=== PATIENT | male | born 1965 | race American Indian/Alaskan Native ===

== ENCOUNTER 2021-02-27 13:29 | Emergency (ER) | payer OTHER ==
--- NOTE | 2021-02-27 14:58 | Event Note ---
ED Screening Note Date of service: 02/27/21 Time: 14:58 ED Screening Note: Patient complains of chest pain, cough with brown sputum, and fatigue x5 days Denies shortness of breath States tactile fever at home This initial assessment/diagnostic orders/clinical plan/treatment(s) is/are subject to change based on patients health status, clinical progression and re- assessment by fellow clinical providers in the ED. Further treatment and workup at subsequent clinical providers discretion. Patient/guardian urged not to elope from the ED as their condition may be serious if not clinically assessed and managed. Initial orders include: Labs Chest x-ray EKG
[2021-02-27 15:42] LABS: Basophils # (Auto) 0.1 K/mm3 (0.0-0.1); Basophils % (Auto) 0.8 % (0.0-1.8); Eosinophils % (Auto) 0.1 % (0.0-4.3); Hematocrit 39.7 % (35.5-45.6); Lymphocytes # (Auto) 1.6 K/mm3 (1.2-5.4); Mean Corpuscular HGB Conc 33 % (32-34); Mean Corpuscular Volume 88 fl (84-94); Monocytes # (Auto) 0.6 K/mm3 (0.0-0.8); Monocytes % (Auto) 7.2 % (0.0-7.3); Platelet Count 240 K/mm3 (140-440); Red Blood Count 4.49 M/mm3 (3.65-5.03); Red Cell Distribution Width 14.8 % (13.2-15.2)
[2021-02-27 16:05] LABS: Alanine Aminotransferase 49 units/L (7-56); Albumin 3.7 g/dL (3.9-5); BUN/Creatinine Ratio 23; Blood Urea Nitrogen 23 mg/dL (9-20); Calcium 10.1 mg/dL (8.4-10.2); Hemolysis Index 13
--- NOTE | 2021-02-27 16:25 | XRay Report ---
XR chest routine 2V INDICATION / CLINICAL INFORMATION: chest pain, cough COMPARISON: None available. FINDINGS: SUPPORT DEVICES: None. HEART / MEDIASTINUM: No significant abnormality. LUNGS / PLEURA: Left lower lung zone parenchymal opacities. Right lower lung zone parenchymal opacity could be atelectasis and/or airspace disease as well. Costophrenic sulci are sharp. No pneumothorax. ADDITIONAL FINDINGS: No significant additional findings. IMPRESSION: 1. Left lower lung zone opacities concerning for pneumonia. Signer Name: Leonardo Hernandez MD Signed: 02/27/2021 4:20 PM Workstation Name: [id number]
--- NOTE | 2021-02-27 20:14 | Emergency Department Report ---
ED General Adult HPI - General Chief complaint: Chest Pain Stated complaint: FATIGUE,COUGH,HEADACHE Time Seen by Provider: 02/27/21 14:57 Source: patient Mode of arrival: Wheelchair Limitations: No Limitations - History of Present Illness Initial comments: 55-year-old -[place] male patient with history of hypertension diabetes presents with complaints of chest pain, cough with brown sputum, and fatigue x5 days. Patient denies any hemoptysis, shortness of breath, loss of taste/smell, or recent known sick contacts. He reports he was also seen by his PCP in the past few days and informed to go to the ED if his symptoms worsen. No vomiting/diarrhea per patient. He states compliance with his diabetic and hypertensive medications. Patient has not received his COVID-19 vaccination - Related Data Previous Rx's Medication Instructions Recorded Last Taken Type Albuterol Mdi (or & Nicu Only) 2 puff IH QID PRN #8.5 gram 02/27/21 Unknown Rx [ProAir HFA Inhaler] Amoxicillin/Potassium Clav 1 each PO BID 10 Days #20 tablet 02/27/21 Unknown Rx [Augmentin 875-125 Tablet] Azithromycin [Zithromax Z-MARQUITA] 0 mg PO DAILY #6 tab 02/27/21 Unknown Rx Allergies Allergy/AdvReac Type Severity Reaction Status Date / Time No Known Allergies Allergy Unverified 02/27/21 14:58 ED Review of Systems ROS: Stated complaint: FATIGUE,COUGH,HEADACHE Other details as noted in HPI Constitutional: chills, fever, malaise, weakness. denies: diaphoresis ENT: denies: throat pain Respiratory: cough. denies: shortness of breath Cardiovascular: chest pain (Mainly with cough per). denies: palpitations Gastrointestinal: denies: abdominal pain, diarrhea, constipation, hematemesis, melena Genitourinary: denies: urgency, dysuria, frequency, hematuria Neurological: denies: headache Hematological/Lymphatic: denies: swollen glands ED Past Medical Hx - Past Medical History Hx Hypertension: Yes Hx Diabetes: Yes - Surgical History Past Surgical History?: No - Medications Home Medications: Home Medications Medication Instructions Recorded Confirmed Last Taken Type Albuterol Mdi (or & Nicu Only) 2 puff IH QID PRN #8.5 gram 02/27/21 Unknown Rx [ProAir HFA Inhaler] Amoxicillin/Potassium Clav 1 each PO BID 10 Days #20 tablet 02/27/21 Unknown Rx [Augmentin 875-125 Tablet] Azithromycin [Zithromax Z-MARQUITA] 0 mg PO DAILY #6 tab 02/27/21 Unknown Rx ED Physical Exam - General Limitations: No Limitations General appearance: alert, in no apparent distress - Head Head exam: Present: atraumatic, normocephalic - Eye Eye exam: Present: normal appearance - ENT ENT exam: Present: normal exam - Neck Neck exam: Present: normal inspection, full ROM. Absent: tenderness - Respiratory Respiratory exam: Present: wheezes (Mild), rales (Left mid/lower lung). Absent: respiratory distress, stridor, chest wall tenderness, accessory muscle use - Cardiovascular Cardiovascular Exam: Present: regular rate, normal rhythm - GI/Abdominal GI/Abdominal exam: Present: soft. Absent: distended, tenderness - Neurological Exam Neurological exam: Present: alert, oriented X3 - Psychiatric Psychiatric exam: Present: normal affect, normal mood - Skin Skin exam: Present: warm, dry, intact, normal color. Absent: rash, cyanosis, diaphoretic, petechiae, pallor, ecchymosis ED Course Vital Signs 02/27/21 02/27/21 14:57 20:00 Temperature 97.9 F 97.5 F L Pulse Rate 80 71 Respiratory 20 16 Rate Blood Pressure 122/80 104/71 O2 Sat by Pulse 95 97 Oximetry ED Medical Decision Making - Lab Data Result diagrams: 02/27/21 15:16 02/27/21 15:16 Lab Results 02/27/21 02/27/21 Range/Units 15:16 15:16 WBC 8.3 (4.5-11.0) K/mm3 RBC 4.49 (3.65-5.03) M/mm3 Hgb 13.0 (11.8-15.2) gm/dl Hct 39.7 (35.5-45.6) % MCV 88 (84-94) fl MCH 29 (28-32) pg MCHC 33 (32-34) % RDW 14.8 (13.2-15.2) % Plt Count 240 (140-440) K/mm3 Lymph % (Auto) 19.0 (13.4-35.0) % [place] % (Auto) 7.2 (0.0-7.3) % Eos % (Auto) 0.1 (0.0-4.3) % Baso % (Auto) 0.8 (0.0-1.8) % Lymph # (Auto) 1.6 (1.2-5.4) K/mm3 [place] # (Auto) 0.6 (0.0-0.8) K/mm3 Eos # (Auto) 0.0 (0.0-0.4) K/mm3 Baso # (Auto) 0.1 (0.0-0.1) K/mm3 Seg Neutrophils % 72.9 H (40.0-70.0) % Seg Neutrophils # 6.1 (1.8-7.7) K/mm3 Sodium 138 (137-145) mmol/L Potassium 4.0 (3.6-5.0) mmol/L Chloride 97.8 L (98-107) mmol/L Carbon Dioxide 26 (22-30) mmol/L Anion Gap 18 mmol/L BUN 23 H (9-20) mg/dL Creatinine 1.0 (0.8-1.3) mg/dL Estimated GFR > 60 ml/min BUN/Creatinine Ratio 23 % Glucose 168 H (75-100) mg/dL Calcium 10.1 (8.4-10.2) mg/dL Total Bilirubin 0.20 (0.1-1.2) mg/dL AST 42 H (5-40) units/L ALT 49 (7-56) units/L Alkaline Phosphatase 76 (35-129) units/L Troponin T < 0.010 (0.00-0.029) ng/mL Total Protein 7.3 (6.3-8.2) g/dL Albumin 3.7 L (3.9-5) g/dL Albumin/Globulin Ratio 1.0 % - Radiology Data Radiology results: report reviewed XR chest routine 2V INDICATION / CLINICAL INFORMATION: chest pain, cough COMPARISON: None available. FINDINGS: SUPPORT DEVICES: None. HEART / MEDIASTINUM: No significant abnormality. LUNGS / PLEURA: Left lower lung zone parenchymal opacities. Right lower lung zone parenchymal opacity could be atelectasis and/or airspace disease as well. Costophrenic sulci are sharp. No pneumothorax. ADDITIONAL FINDINGS: No significant additional findings. IMPRESSION: 1. Left lower lung zone opacities concerning for pneumonia. - Medical Decision Making 55-year-old -[place] male patient with history of hypertension diabetes presents with complaints of chest pain, cough with brown sputum, and fatigue x5 days. Patient denies any hemoptysis, shortness of breath, loss of taste/smell, or recent known sick contacts. He reports he was also seen by his PCP in the past few days and informed to go to the ED if his symptoms worsen. No vomiting/diarrhea per patient. He states compliance with his diabetic and hypertensive medications. Patient has not received his COVID-19 vaccination Wheezing and rales noted on lung exam. X-ray shows left lower lung pneumonia. White count is normal CBC. No significant abnormalities noted on CMP. Patient continues to deny shortness of breath. Pulse ox is normal on room air and he remains afebrile and nontachycardic. Patient is stable for outpatient treatment of pneumonia with Augmentin and azithromycin. Patient also informed to receive COVID-19 testing within the next 24 to 48 hours and self quarantine until his results are back. He is to follow-up with his primary care doctor within 3 to 5 days. He is well-appearing and stable for discharge home. Patient states understanding of the care plan and denies any further questions at this time. Discussed in great detail signs and symptoms that should prompt immediate return to the emergency department with patient who verbalizes understanding. Critical care attestation.: If time is entered above; I have spent that time in minutes in the direct care of this critically ill patient, excluding procedure time. ED Disposition Clinical Impression: Community acquired pneumonia of left lower lobe of lung Disposition: DC-01 TO HOME OR SELFCARE Is pt being admited?: No Condition: Stable Instructions: COVID-19, Community-Acquired Pneumonia, Adult, Prevent the Spread of COVID-19 if You Are Sick - CDC, Bacterial Pneumonia (ED) Additional Instructions: Please receive COVID-19 testing within the next 24 to 48 hours and self quarantine until your results are back Please take a daily vitamin C supplement and a zinc supplement Drink plenty of water and rest Prescriptions: Amoxicillin/Potassium Clav [Augmentin 875-125 Tablet] 1 each PO BID 10 Days #20 tablet Albuterol Mdi (or & Nicu Only) [ProAir HFA Inhaler] 2 puff IH QID PRN #8.5 gram PRN Reason: Shortness Of Breath Azithromycin [Zithromax Z-MARQUITA] 0 mg PO DAILY #6 tab Referrals: PRIMARY CARE, [Primary Care Provider] - 3-5 Days Forms: Work/School Release Form(ED)
[2021-02-27 20:49] VITALS: BP 106/70
--- NOTE | 2021-02-28 11:52 | Electrocardiograph Report ---
[facility] Test Date: 2021-02-27 Test Time: 15:12:09 Pat Name: LISSETT SANTOS Department: Room: Gender: M Doctor Of Optometry: CAM : 1965 Requested By: HAYDE MERINO Order Number: [id number] Reading MD: Maria A Santacruz Measurements Intervals [place] Rate: 68 P: 28 W[place]: 204 QRS: 34 QRSD: 81 T: 24 QT: 395 QTc: 419 Interpretive Statements Sinus rhythm Borderline prolonged [place] interval No previous ECG available for comparison Electronically Signed On 02-28-2021 11:51:51 EDT by Maria A Santacruz
== END 2021-02-27 20:38 | disposition home or self-care (01) ==
LOC: ED 13:29
DX: J18.1 Lobar pneumonia, unspecified organism (principal); I10 Essential (primary) hypertension; E11.9 Type 2 diabetes mellitus without complications; Z79.899 Other long term (current) drug therapy
CPT/HCPCS: 36415; 71046; 80053; 84484; 85025; 93005